=== PATIENT | female | born 1945 | race Two or more races ===

== ENCOUNTER 2021-09-05 00:01 | Emergency (ER) | payer OTHER ==
[~2021-09-05] VITALS: Ht 152.4 cm; Wt 70.9 kg
[2021-09-05] MEDS ORDERED: ATOR40TA28 PO (02:22)
[2021-09-05] MEDS ORDERED: LINA5TAB PO ×2 (02:22→07:51)
[2021-09-05] MEDS ORDERED: LISI-892 PO (02:24)
[2021-09-05] MEDS ORDERED: LEVO25TA9 PO (02:24)
[2021-09-05] MEDS ORDERED: DOCU-270 PO (02:24)
[2021-09-05 02:51] LABS: GLUCOSE,POINT OF CARE 276 MG/DL (70-110)
[2021-09-05 03:29] LABS: BASOPHILS % (AUTO) 1.1 % (0.0-2.0); EOSINOPHILS % (AUTO) 3.1 % (1.0-6.0); HEMOGLOBIN 11.1 g/dL (12.0-16.0); LYMPHOCYTES # (AUTO) 2.3 K/uL (1.0-4.8); LYMPHOCYTES % (AUTO) 41.3 % (22.0-44.0); MEAN CORPUSCULAR HEMOGLOBIN 28.2 pg (26.0-34.0); MEAN CORPUSCULAR HGB CONC 32.8 G/dL (31.0-37.0); MEAN CORPUSCULAR VOLUME 86 fL (80-100); MONOCYTES # (AUTO) 0.7 K/uL (0.1-1.0); MONOCYTES % (AUTO) 13.3 % (2.0-9.0); NEUTROPHILS # (AUTO) 2.2 K/uL (1.8-7.7); NEUTROPHILS % (AUTO) 41.2 % (40.0-70.0); PLATELET COUNT (AUTO) 247 K/uL (150-450); RED BLOOD CELL COUNT(AUTO) 3.94 MIL/uL (4.00-5.20); RED CELL DISTRIBUTION WIDTH 14.2 % (11.5-14.5)
[2021-09-05 03:40] LABS: ANION GAP 7 mmol/L (8-16); CALCIUM, TOTAL 9.2 mg/dL (8.8-10.5); CARBON DIOXIDE 27 mmol/L (22-29); CHLORIDE 103 mmol/L (98-107); GLUCOSE,RANDOM 280 mg/dL (70-110); SODIUM SERUM 137 mmol/L (136-145); UREA NITROGEN, BLOOD 13 mg/dL (7-18)
[2021-09-05 03:42] LABS: GLOMERULAR FILTR. RATE CALC > 60 mL/min (>60)
[2021-09-05 03:45] LABS: ALANINE AMINOTRANSFERASE 11 U/L (12-78); ALBUMIN 3.3 g/dL (3.4-5.0); ALKALINE PHOSPHATASE 91 U/L (46-116); ASPARTATE AMINOTRANSFERASE 8 U/L (15-37); BILIRUBIN,TOTAL 0.3 mg/dL (0.1-1.0); LIPASE 198 U/L (73-393); TOTAL PROTEIN, SERUM 7.4 g/dL (6.4-8.2)
[2021-09-05] MEDS ORDERED: SODIUM CHLORIDE 0.9% 500 ML IV ONE (06:15)
[2021-09-05 07:31] LABS: GLUCOSE,POINT OF CARE 165 MG/DL (70-110)
[2021-09-05 07:37] VITALS: BP 139/72
== END 2021-09-05 08:53 | disposition home or self-care (01) ==
LOC: EMS 00:02
DX: E11.65 Type 2 diabetes mellitus with hyperglycemia (principal); E78.00 Pure hypercholesterolemia, unspecified; I10 Essential (primary) hypertension; Z79.899 Other long term (current) drug therapy
CPT/HCPCS: 36415; 80053; 82962; 83690; 84484; 85025; 99285; J7040

== ENCOUNTER 2022-08-05 15:34 | Emergency (ER) | payer OTHER ==
[~2022-08-05] VITALS: Ht 157.5 cm; Wt 84.1 kg
[~2022-08-05 15:34] MED LIST: ATOR40TA28 PO; DOCU-385 PO; LEVO25TA9 PO; LINA5TAB PO; LISI-892 PO
[2022-08-05] MEDS ORDERED: METF-1211 PO (15:54)
[2022-08-05] MEDS ORDERED: NPH,100V SQ (15:54)
[2022-08-05] MEDS ORDERED: MECL-160 PO (15:54)
[2022-08-05] MEDS ORDERED: MEMA10TA55 PO (15:54)
[2022-08-05 16:23] LABS: BASOPHILS % (AUTO) 1.2 % (0.0-2.0); EOSINOPHILS % (AUTO) 2.1 % (1.0-6.0); HEMATOCRIT 38.6 % (36-46); HEMOGLOBIN 12.4 g/dL (12.0-16.0); LYMPHOCYTES # (AUTO) 2.6 K/uL (1.0-4.8); LYMPHOCYTES % (AUTO) 32.1 % (22.0-44.0); MEAN CORPUSCULAR HGB CONC 32.1 G/dL (31.0-37.0); MEAN CORPUSCULAR VOLUME 87 fL (80-100); MONOCYTES # (AUTO) 0.5 K/uL (0.1-1.0); MONOCYTES % (AUTO) 6.8 % (2.0-9.0); NEUTROPHILS # (AUTO) 4.6 K/uL (1.8-7.7); NEUTROPHILS % (AUTO) 57.8 % (40.0-70.0); PLATELET COUNT (AUTO) 266 K/uL (150-450); RED BLOOD CELL COUNT(AUTO) 4.43 MIL/uL (4.00-5.20); RED CELL DISTRIBUTION WIDTH 14.5 % (11.5-14.5)
[2022-08-05 16:33] LABS: CALCIUM, TOTAL 9.4 mg/dL (8.8-10.5); CREATININE 0.99 mg/dL (0.60-1.30)
[2022-08-05 16:39] LABS: ALBUMIN 4.1 g/dL (3.4-5.0); BILIRUBIN,TOTAL 0.3 mg/dL (0.1-1.0); TOTAL PROTEIN, SERUM 8.1 g/dL (6.4-8.2)
[2022-08-05] MEDS ORDERED: MECLIZINE HCL 25 MG TABLET PO ONE (17:00)
[2022-08-05] MEDS ORDERED: SODIUM CHLORIDE 0.9% 1,000 ML IV ONE (17:00)
[2022-08-05] MEDS ORDERED: ACETAMINOPHEN 500 MG TABLET PO ONE (17:00)
[2022-08-05] MEDS ORDERED: ONDANSETRON HCL 4 MG/2 ML VIAL IVP ONE (17:00)
[2022-08-05 19:39] VITALS: BP 141/64
[2022-08-05] MEDS ORDERED: MECL-134 PO (20:07)
[2022-08-05] MEDS ORDERED: ACET-66 PO (20:07)
[2022-08-05] MEDS ORDERED: ONDA-104 PO (20:07)
== END 2022-08-05 20:47 | disposition home or self-care (01) ==
LOC: EMS 15:41
DX: R42 Dizziness and giddiness (principal); M54.2 Cervicalgia; R51.9 Headache, unspecified; E11.9 Type 2 diabetes mellitus without complications; E78.00 Pure hypercholesterolemia, unspecified; I10 Essential (primary) hypertension; E03.9 Hypothyroidism, unspecified
CPT/HCPCS: 99285; 96374; 70450; 96361; 80053; 83880; 84484; 85025; 36415; 93005; J2405; J7030